=== PATIENT | female | born 1990 | race Asian ===

== ENCOUNTER 2018-10-27 21:29 | Emergency (ER) | payer OTHER ==
[~2018-10-27] VITALS: Ht 160 cm; Wt 54.4 kg
[2018-10-27 21:46] VITALS: BP 117/67
--- NOTE | 2018-10-27 21:48 | NUR ---
ED Nurse Note: Jimbo walked int oED presenting hives and inflammation from his neck to his ear, patient does have hives especially in the back of neck, states that it happened 2 days ago for an unknown reason, denies any SOB or any trouble breathing, patients ears are bialterally infalmmed as well, patient is alert and oriented x4, ambualtory with a steady gait, VSS
[2018-10-27] MEDS ORDERED: DiphenhydrAMINE 50mg/ml Inj IVP ONE (22:00)
[2018-10-27] MEDS ORDERED: Solu-MEDROL 125mg Inj IVP ONE (22:00)
[2018-10-27] MEDS ORDERED: PREDNISONE20 MG ORAL (22:03)
[2018-10-27] MEDS ORDERED: BENADRYL25 MG ORAL (22:03)
[2018-10-27] MEDS ORDERED: CEPHALEXIN500 MG ORAL (22:04)
--- NOTE | 2018-10-27 22:05 | Emergency Room Report ---
History of Present Illness General Chief Complaint: Allergic Reaction Source: Patient Present Illness HPI Is a 28-year-old female with no past medical history. She presents with chief point of rash and itchiness. Started on Sunday night. Initially her ear was itching. She woke up and it was swollen. There was a rash behind the back of her neck and now spreading to the upper back and torso area. Very itchy. No relief with ibuprofen. She put cream on it without any relief. No trauma. No new medication. No new hair product. Denies any fever chills. Denies any nausea vomiting. No recent hot tub. Allergies: Coded Allergies: No Known Allergies (Unverified , 10/27/18) Patient History Past Medical History: see triage record, old chart reviewed Past Surgical History: none Pertinent Family History: none Social History: Denies: smoking Last Menstrual Period: 10/13/2018 Now: No Immunizations: other Reviewed Nursing Documentation: PMH: Agreed; PSxH: Agreed Nursing Documentation-PMH Past Medical History: No Stated History Review of Systems Eye: Denies: eye pain, blurred vision ENT: Denies: ear pain, nose congestion, throat swelling Respiratory: Denies: cough, shortness of breath Cardiovascular: Denies: chest pain, palpitations Gastrointestinal: Denies: abdominal pain, diarrhea, nausea, vomiting Musculoskeletal: Denies: back pain, joint pain Skin: Reports: rash Neurological: Denies: headache, numbness Endocrine: Denies: increased thirst, increased urine Hematologic/Lymphatic: Denies: easy bruising All Other Systems: negative except mentioned in HPI Physical Exam Vital Signs Date Time Temp Pulse Resp B/P (MAP) Pulse Ox O2 Delivery O2 Flow Rate FiO2 10/27/18 21:37 98.2 67 16 117/67 97 Room Air vitals normal Sp02 EP Interpretation: reviewed, normal General Appearance: well appearing, no apparent distress, alert Head: normocephalic, atraumatic Eyes: bilateral eye PERRL, bilateral eye EOMI ENT: hearing grossly normal, normal pharynx, other - Both ears showed edema. The nape of her neck to the front in the ears show hyperemia. There is also pimply rash. No purpura. No abscess. Neck: full range of motion, supple, no meningismus Respiratory: chest non-tender, lungs clear, normal breath sounds Cardiovascular #1: regular rate, rhythm, no murmur Gastrointestinal: normal bowel sounds, non tender, no mass, no organomegaly, no bruit, non-distended Musculoskeletal: back normal, gait/station normal, normal range of motion Psychiatric: mood/affect normal Skin: warm/dry Medical Decision Making Diagnostic Impression: Primary Impression: Allergic reaction Qualified Codes: T78.40XA - Allergy, unspecified, initial encounter Additional Impression: Cellulitis of neck ER Course Pt presents with symptoms consistent with contact dermatitis. Unknown etiology. There may be some overlying cellulitis. She has no other symptoms consistent with measle. There is no cough or fever. No [place] spots in her mouth. No evidence of anaphylaxis. We'll treat symptomatically. Last Vital Signs Date Time Temp Pulse Resp B/P (MAP) Pulse Ox O2 Delivery O2 Flow Rate FiO2 10/27/18 21:46 67 16 Room Air 10/27/18 21:46 98.2 117/67 97 Status: improved Disposition: HOME, SELF-CARE Condition: Stable Scripts Cephalexin* (KEFLEX*) 500 Mg Capsule 500 MG ORAL TID, #21 CAP 0 Refills Prov: Marcos Bah MD 10/27/18 Prednisone* (PREDNISONE*) 20 Mg Tablet 40 MG ORAL DAILY, #10 TAB Prov: Marcos Bah MD 10/27/18 Diphenhydramine Hcl* (BENADRYL*) 25 Mg Capsule 50 MG ORAL Q6H PRN for Itching, #30 CAP Prov: Marcos Bah MD 10/27/18 Patient Instructions: Allergies Additional Instructions: Follow-up with your DrPatience in 2 to 3 days for recheck. Return for worsening of symptoms or having fever. Marcos Bah MD Oct 27, 2018 22:05
[2018-10-27 22:26] VITALS: BP 117/67
--- NOTE | 2018-10-27 22:27 | NUR ---
ER DISCHARGE NOTE: Patient is cleared to be discharged per ERMD, pt is aox4, on room air, with stable vital signs. pt was given dc and prescription instructions, pt was able to verbalize understanding, pt id band and iv site removed without complications. pt is able to ambulate with steady gait. pt took all belongings.
== END 2018-10-27 22:27 | disposition home or self-care (01) ==
LOC: EMR 21:45
DX: T78.40XA Allergy, unspecified, initial encounter (principal); L03.221 Cellulitis of neck; X58.XXXA Exposure to other specified factors, initial encounter; Y92.9 Unspecified place or not applicable
CPT/HCPCS: 96374; 96375; 99284; J1200; J2930

== ENCOUNTER 2019-04-03 21:49 | Emergency (ER) | payer OTHER ==
[~2019-04-03] VITALS: Ht 160 cm; Wt 54.4 kg
[~2019-04-03 21:49] MED LIST: BENADRYL25 MG ORAL; CEPHALEXIN500 MG ORAL; PREDNISONE20 MG ORAL
--- NOTE | 2019-04-03 22:00 | NUR ---
ED Nurse Note: Pt walked in c/o RLQ abd pain since 1999. Pt stated she was at rest. Pt states nausea, no vomiting. 8/10 sharp pain. Denies hx and family hx of GI illness. AO4. NAD. VSS. FRIEND AT BEDSIDE
--- NOTE | 2019-04-03 22:13 | NUR ---
ED Nurse Note: IV ACCESS ESTABLISHED; BLOOD AND URINE COLLECTED; SENT DOWN TO LAB.
--- NOTE | 2019-04-03 22:14 | Emergency Room Report ---
History of Present Illness General Chief Complaint: Abdominal Pain Source: Patient Present Illness HPI This is a 28-year-old female with no past medical history. She presents with chief complaint abdominal pain. Onset was acute and occurred about 2 hours ago. Pain is to the right lower quadrant right area. Pain is sharp. 9 out of 10. No radiation. Worse with movement. Better with rest. She felt nauseous but no vomiting. No diarrhea. No dysuria frequency. No urinary complaint. Allergies: Coded Allergies: No Known Allergies (Unverified , 10/27/18) Patient History Past Medical History: none, see triage record, old chart reviewed Past Surgical History: none Pertinent Family History: none Social History: Denies: smoking Last Menstrual Period: 03/2019 Now: No Immunizations: other Reviewed Nursing Documentation: PMH: Agreed; PSxH: Agreed Nursing Documentation-PMH Past Medical History: No Stated History Review of Systems Eye: Denies: eye pain, blurred vision ENT: Denies: ear pain, nose congestion, throat swelling Respiratory: Denies: cough, shortness of breath Cardiovascular: Denies: chest pain, palpitations Gastrointestinal: Reports: abdominal pain; Denies: diarrhea, nausea, vomiting Musculoskeletal: Denies: back pain, joint pain Skin: Denies: rash Neurological: Denies: headache, numbness Endocrine: Denies: increased thirst, increased urine Hematologic/Lymphatic: Denies: easy bruising All Other Systems: negative except mentioned in HPI Physical Exam Vital Signs Date Time Temp Pulse Resp B/P (MAP) Pulse Ox O2 Delivery O2 Flow Rate FiO2 04/03/19 21:56 98.1 66 16 111/65 (80) 98 Room Air Vitals normal Sp02 EP Interpretation: reviewed, normal General Appearance: well appearing, no apparent distress, alert Head: normocephalic, atraumatic Eyes: bilateral eye PERRL, bilateral eye EOMI ENT: hearing grossly normal, normal pharynx Neck: full range of motion, supple, no meningismus Respiratory: chest non-tender, lungs clear, normal breath sounds Cardiovascular #1: regular rate, rhythm, no murmur Gastrointestinal: normal bowel sounds, no mass, no organomegaly, no bruit, non- distended, tenderness - Pelvic, right Musculoskeletal: back normal, gait/station normal, normal range of motion Psychiatric: mood/affect normal Medical Decision Making Diagnostic Impression: Primary Impression: Abdominal pain Qualified Codes: R10.31 - Right lower quadrant pain ER Course Patient with right lower quadrant pain. No evidence of an acute abdomen. CT negative. Pain better controlled now. No evidence of ectopic or obstruction. May be secondary to small ovarian cyst rupture or ovulation pain. CT/MRI/US Diagnostic Results CT/MRI/US Diagnostic Results : Imaging Test Ordered: CT abdomen pelvis Impression Negative per radiologist Last Vital Signs Date Time Temp Pulse Resp B/P (MAP) Pulse Ox O2 Delivery O2 Flow Rate FiO2 04/03/19 21:56 98.1 66 16 111/65 (80) 98 Room Air Status: improved Disposition: HOME, SELF-CARE Condition: Stable Scripts Ibuprofen* (MOTRIN*) 600 Mg Tablet 600 MG ORAL THREE TIMES A DAY, #30 TAB 0 Refills Prov: Marcos Bah MD 04/03/19 Patient Instructions: Abdominal Pain, Adult Additional Instructions: Follow-up with your doctor in 7 days. Return if symptoms worsen. Marcos Bah MD Apr 03, 2019 22:14
[2019-04-03] MEDS ORDERED: Ketorolac 30mg Inj IV ONE (22:15)
[2019-04-03 22:34] VITALS: BP 111/65
[2019-04-03 22:45] LABS: ANION GAP 7 mmol/L (5-15); BLOOD UREA NITROGEN 8 mg/dL (7-18); CALCIUM 9.5 MG/DL (8.5-10.1); CARBON DIOXIDE 30 MMOL/L (21-32); CHLORIDE 103 MMOL/L (98-107); CREATININE 0.7 MG/DL (0.55-1.30); POTASSIUM 3.4 MMOL/L (3.5-5.1); SODIUM 140 MMOL/L (136-145)
[2019-04-03 22:50] LABS: BILIRUBIN, URINE NEGATIVE (NEGATIVE); COLOR,URINE PALE YELLOW; GLUCOSE, URINE (UA) NEGATIVE (NEGATIVE); KETONES,URINE NEGATIVE (NEGATIVE); LEUKOCYTE ESTERASE ,URINE NEGATIVE (NEGATIVE); NITRITE,URINE NEGATIVE (NEGATIVE); PH,URINE 6 (4.5-8.0); PROTEIN,URINE NEGATIVE (NEGATIVE); UROBILINOGEN,URINE NORMAL MG/DL (0.0-1.0)
[2019-04-03 22:51] LABS: APPEARANCE,URINE CLEAR
[2019-04-03 23:01] LABS: BASOPHILS % (AUTO) 1.2 % (0.0-2.0); HEMATOCRIT 43.2 % (37.0-47.0); HEMOGLOBIN 14.7 G/DL (12.0-16.0); MEAN CORPUSCULAR VOLUME 90 FL (80-99); MONOCYTES % (AUTO) 6.5 % (1.0-10.0); NEUTROPHILS % (AUTO) 55.5 % (45.0-75.0); PLATELET COUNT 240 K/UL (150-450); RED BLOOD COUNT 4.78 M/UL (4.20-5.40); RED CELL DISTRIBUTION WIDTH 10.1 % (11.6-14.8); WHITE BLOOD COUNT 7.7 K/UL (4.8-10.8)
--- NOTE | 2019-04-03 23:10 | NUR ---
ED Nurse Note: PT BACK FROM IMAGING. PROVIDED PT WITH BLANKETS.
--- NOTE | 2019-04-03 23:31 | Diagnostic Imaging Report ---
Indication: Abdominal pain Technique: Continuous helical transaxial imaging of the abdomen and pelvis was obtained from the lung bases to the pubic symphysis. No intravenous contrast was administered. Coronal 2-D reformats were also obtained. Automatic Exposure Control was utilized. Total Dose length Product (DLP): [address] Dose Index Volume (CTDIvol): 5 mGy Comparison: none Findings: Mild peripheral posterior basilar density noted within the lungs likely atelectasis. The appendix is normal. No hydronephrosis or renal stones are identified. The urinary bladder is relatively nondistended. Uterus is noted. In the left adnexa there is a soft tissue density structure measuring approximately 7.8 x 6.0 cm not adequately evaluated on noncontrast imaging but similar in attenuation with muscle. There is mild free fluid within the pelvis.. The mass could be an enlarged ovary or represent an adnexal mass, either involving the left ovary or adjacent to the ovary. Further evaluation with contrast imaging CT or MRI or ultrasound is recommended. IMPRESSION: 7.8 x 6 x 5.4 cm left adnexal mass requiring further evaluation. Mild pelvic free fluid. There is a significant discrepancy with the preliminary reading by [employer], with no mention of the pelvic mass. Findings on this report were discussed with Dr. Torres in the emergency department 10:00 AM, 04/04/2019. Patient will be contacted and further evaluation will be performed. The CT scanner at [facility] is accredited by the [employer] and the scans are performed using dose optimization techniques as appropriate to a performed exam including Automatic Exposure control.
[2019-04-03] MEDS ORDERED: IBUPROFEN600 MG ORAL (23:54)
[2019-04-04] VITALS: BP 111/65
== END 2019-04-04 00:01 | disposition home or self-care (01) ==
LOC: EMR 22:30
DX: R10.31 Right lower quadrant pain (principal); N83.9 Noninflammatory disorder of ovary, fallopian tube and broad ligament, unspecified
CPT/HCPCS: 36415; 74176; 80048; 81003; 81025; 85025; 96361; 96374; 96375; 99284; J1885; J2405